=== PATIENT | female | born 1950 ===

== ENCOUNTER 2025-04-04 15:20 | Outpatient (CLI) | payer MEDICARE, OTHER, SELFPAY | END 2025-04-04 15:21 | disposition home or self-care (01) | LOC: FRMREF 15:21 | PROVIDERS: PCP Family Medicine; Visit Provider Family Medicine | DX: Z00.00 Encounter for general adult medical examination without abnormal findings (principal); E61.1 Iron deficiency | CPT/HCPCS: 80053; 83540; 83550 ==